=== PATIENT | male | born 2000 | race African-American/Black ===

== ENCOUNTER 2023-04-29 16:58 | Emergency (ER) | payer MEDICAID ==
[~2023-04-29] VITALS: Ht 182.9 cm; Wt 91.0 kg
[2023-04-29 17:14] VITALS: O2SAT 99
[2023-04-29] MEDS ORDERED: KETOROLAC 60MG/2ML VIAL IM STA (17:41)
[2023-04-29] MEDS ORDERED: CYCL5TAB PO (18:43)
[2023-04-29] MEDS ORDERED: NAPR-681 PO (18:43)
[2023-04-29 18:58] VITALS: TEMP 98.1
[2023-04-29 19:04] VITALS: BP 108/78; PULSE 82; RESP 16
== END 2023-04-29 19:07 | disposition home or self-care (01) ==
LOC: ER 16:58
DX: S39.012A Strain of muscle, fascia and tendon of lower back, initial encounter (principal); X58.XXXA Exposure to other specified factors, initial encounter; Y93.89 Activity, other specified; Y92.89 Other specified places as the place of occurrence of the external cause; Y99.8 Other external cause status
CPT/HCPCS: 72100; 96372; 99283; J1885; Z7610

== ENCOUNTER 2024-09-03 22:54 | Emergency (ER) | payer MEDICAID, OTHER ==
[~2024-09-03] VITALS: Ht 185.4 cm; Wt 91.0 kg
[~2024-09-03 22:54] MED LIST: CYCL5TAB3 PO; NAPR-681 PO
[2024-09-03 23:27] VITALS: TEMP 37.1; O2SAT 100
[2024-09-04] MEDS: IBUPROFEN 400MG TABLET PO ONE (00:26)
[2024-09-04] MEDS ORDERED: ACET-2708 MT (00:45)
[2024-09-04 01:12] VITALS: BP 118/70; PULSE 58; RESP 16; O2SAT 100
== END 2024-09-04 01:13 | disposition home or self-care (01) ==
LOC: ER 09-04 00:25
DX: M79.644 Pain in right finger(s) (principal); Z79.899 Other long term (current) drug therapy; X58.XXXA Exposure to other specified factors, initial encounter; Y93.67 Activity, basketball; Y92.89 Other specified places as the place of occurrence of the external cause; Y99.8 Other external cause status
CPT/HCPCS: 29125; 29130; 73100; 73120; 99284